=== PATIENT | male | born 1975 | race Caucasian/White ===

== ENCOUNTER 2019-07-23 09:16 | Observation (INO) | payer BC ==
[2019-07-23] MEDS ORDERED: ceFAZolin 1 GM/10 ML flush(*) SYRINGE for pocket flush (cardiology) FLUSH ONE (10:00)
[2019-07-23] MEDS ORDERED: ceFAZolin* 2 GM* ONE DOSE (Duplex) IVPB (10:00)
[2019-07-23] MEDS ORDERED: Diazepam TAB(*) 5 MG ONE (10:21)
[2019-07-23] MEDS ORDERED: fentaNYL* 50 MCG/ML 2 ML VIAL (100 MCG VIAL) ONE (10:23)
[2019-07-23] MEDS ORDERED: Flumazenil* 0.1 MG/ML 5 ML MDV ONE (10:23)
[2019-07-23] MEDS ORDERED: Midazolam* 1 MG/ML 5 ML VIAL (5 MG) ONE ×2 (10:23→11:52)
[2019-07-23] MEDS ORDERED: Naloxone* 0.4 MG/ML 1 ML VIAL ONE (10:23)
[2019-07-23] MEDS ORDERED: Lidocaine 1% INJ* 10 MG/ML 30 ML SDV ONE (10:24)
[2019-07-23] MEDS ORDERED: Acetaminophen TAB* 325 MG PO PRN (12:48)
[2019-07-23] MEDS: oxyCODONE/Acetamin 5/325 MG* TAB PO PRN ×2 (13:03→19:16)
[2019-07-23] MEDS ORDERED: Fluticasone NASAL SPRAY 50MCG* 16 gm SPRAY BTL BOTH NARES PRN (13:11)
[2019-07-23] MEDS: ceFAZolin VIAL(*) 1 GM in NS 0.9% 50 ML* 50 ML IVPB SCH (19:16)
[2019-07-23] MEDS: Carvedilol TAB* 3.125 MG PO SCH (20:39)
[2019-07-23] MEDS ORDERED: Atorvastatin* 40 MG TAB PO SCH (21:00)
[2019-07-24] MEDS: ceFAZolin VIAL(*) 1 GM in NS 0.9% 50 ML* 50 ML IVPB SCH ×2 (03:09→11:13)
[2019-07-24 08:06] VITALS: BP 145/88
[2019-07-24] MEDS: Carvedilol TAB* 3.125 MG PO SCH (08:16)
[2019-07-24] MEDS ORDERED: Aspirin EC TAB* 81 MG TAB.EC PO SCH (09:00)
--- NOTE | 2019-07-24 14:15 | OP ---
OPERATIVE REPORT: DATE OF OPERATION: 07/23/19 DATE OF : 71 SURGEON: Jose Cook MD ANESTHESIA: Local anesthesia with conscious sedation. PRE-OP DIAGNOSES: 1. Bradycardia. 2. Lightheadedness. POST-OP DIAGNOSES: 1. Bradycardia. 2. Lightheadedness. OPERATIVE PROCEDURE: Dual-chamber pacemaker implantation. ESTIMATED BLOOD LOSS: Nil. COMPLICATIONS: None. INDICATIONS: The patient is a 44-year-old gentleman who has episodes of lightheadedness and dizzines s. He has a history of bradycardia. The patient had an event monitor implanted last week. The tanika ent had an episode of lightheadedness, dizziness, and fatigue. His heart rate went down to 25 beats per minute. Permanent pacemaker was recommended. DESCRIPTION OF PROCEDURE: The patient was in a fasting state. Informed consent had been obtained pr ior to the procedure. All labs had been reviewed. The patient was placed supine on the procedure ta ble. His left deltopectoral area was cleaned and draped in the usual fashion. 1% lidocaine was used for local anesthesia. Under ultrasound guidance, the axillary vein was entered via [employer]. A second guidewire was placed in the same technique. A 5 cm incision was made in the pectoral ar ea and blunt dissection was carried down to the pectoral fascia. A pocket was fashioned for the pace maker. Over the first guidewire, a 7-Arabic sheath introducer was placed through which a right ventr icular lead was advanced to the right ventricular septum. The lead is a Medtronic model 5076, serial number [id number]. It had an R-wave sensitivity of 7.2, impedance 960 ohms, threshold 0.5 volts at 0.5 milliseconds. The ventricular lead was sutured to the pectoral fascia. Over the second guidewir e, a 7-Arabic sheath introducer was placed through which a right atrial lead was advanced to the high right atrium. The right atrial lead is a Medtronic model 5076, serial number [id number]. It had a P-wave sensitivity of 3.3, impedance 695 ohms, threshold 0.7 volts at 0.5 milliseconds. The atrial le ad was sutured to the pectoral fascia. The pocket was flushed. A generator was attached appropriate ly to the atrial and ventricular leads. The generator is a [employer] model W1DR01, serial number [id number]. The device was placed in the pocket. The surgical incision was closed in 3 layers. The pa tient tolerated the procedure well with no complications. [id number]/[facility] #: [id number]
--- NOTE | 2019-07-25 01:56 | DS ---
CC: Dr. Daniels * DISCHARGE SUMMARY: DATE OF ADMISSION: 07/23/19 TENTATIVE DATE OF DISCHARGE: Pending no complications, 07/24/19 ATTENDING PHYSICIAN: Dr. Jose Cook, Cardiology.* (DICTATED BY SAI ATKINSON NP) PRIMARY CARE PHYSICIAN: Dr. Daniels. PRIMARY PLUG AND MOLD FINISHER: Dr. Ramón Bhatia. CHIEF COMPLAINT: Symptomatic bradycardia, here for elective permanent pacemaker implantation. HISTORY OF PRESENT ILLNESS: This is a pleasant 44-year-old male patient with a notable history of bradycardia, sinus pauses, chronic kidney disease, baseline serum creatinine 1.3, hypertension, cardiomyopathy with normalization of LVEF based on February 2019 echocardiogram, who presented to [facility] on 07/23/19 for elective permanent pacemaker implantation with Dr. Jose Cook. The patient underwent successful dual-chamber pacemaker implantation with Dr. Jose Cook on 07/23/19. Postprocedure chest x-ray did not reveal any pneumothorax or acute cardiopulmonary process. He was [place]. Vital signs have remained stable. Most recent vital signs: Temperature 98.1, pulse 86, respirations 16, oxygenation 95% on room air, blood pressure 135/88. No blood work this morning to review. Chest x-ray this morning to rule out pneumothorax 24 hours after procedure is currently pending. The patient offers no complaints. Denies chest pain, shortness of breath, device site pain or discomfort. He has been utilizing left upper extremity arm immobilizer and ambulating halls with no difficulty. Pending no complications and this morning's chest x-ray, plan is to discharge the patient home in stable condition. This morning's device interrogation was reviewed. [place] lead pacing threshold is 0.5 volts at 0.4 milliseconds, right ventricle pacing threshold is 0.5 volts at 0.4 milliseconds. Normal permanent pacemaker function. No VT, no AF. For further information in regards to procedural note , please refer to Dr. Jose Cook's procedural intervention note which is currently pending at this time and has not been transcribed. DISCHARGE ACTIVITY RESTRICTIONS: No driving until further directed in followup. The patient may shower starting 07/25/19, but was advised to not soak left anterior chest device site wound, do not swim or utilize hot tub. I reviewed wound care with the patient. He was instructed to change device site wound dressing daily until he sees Eugenie Pearson NP on 07/31/19 in followup. He is aware to take temporary antibiotic as prescribed for a total of 3 days. He is aware to utilize left arm immobilizer as directed, do not lift left arm above shoulder or reach behind him for at least 6 weeks and do not lift more than 5 to 10 pounds until further directed. FOLLOWUP APPOINTMENTS: The patient is to follow up with: 1. PCP in 7 to 10 days, Dr. Daniels. 2. Eugenie Pearson NP on 07/31/19 as planned. DISCHARGE MEDICATIONS: Includes: 1. Keflex 250 mg p.o. t.i.d. 2. Aspirin 81 mg a day. 3. Atorvastatin 40 mg a day. 4. Coreg 3.125 mg p.o. b.i.d. 5. Fluticasone as directed. 6. Tylenol as directed. DISCHARGE CONDITION: Stable to be discharged home pending this morning's chest x- ray. Dr. Jose Cook has personally seen and examined the patient and agrees with the above assessment and plan. Please note that left anterior device site was personally examined by myself. It was slight tender to palpation. No evidence of pocket hematoma. Edges are well approximated with ronnie in situ, slight oozing noted from staple incision site, scant dry blood noted on dressing. No ecchymosis or inflammation appreciated. Dressing was reapplied. SAI ATKINSON NP [id number]/[facility] #: [id number] [facility]
== END 2019-07-24 11:55 | disposition home or self-care (01) ==
LOC: CHICATH 09:16 → MEDTELE 12:48
PROVIDERS: ADMIT Specialist; ATTEND Specialist
DX: R00.1 Bradycardia, unspecified (principal); I42.9 Cardiomyopathy, unspecified; R42 Dizziness and giddiness; I13.0 Hypertensive heart and chronic kidney disease with heart failure and stage 1 through stage 4 chronic kidney disease, or unspecified chronic kidney disease; E11.22 Type 2 diabetes mellitus with diabetic chronic kidney disease; I50.21 Acute systolic (congestive) heart failure; N18.9 Chronic kidney disease, unspecified; R94.31 Abnormal electrocardiogram [ECG] [EKG]; E66.01 Morbid (severe) obesity due to excess calories; Z79.82 Long term (current) use of aspirin; Z68.41 Body mass index [BMI] 40.0-44.9, adult; Z79.899 Other long term (current) drug therapy
CPT/HCPCS: 33208; 71045; 71046; 93005; 96365; 96366; 99156; 99157; A9270-GY; C1785; C1892; C1898; G0378; J0690; J2250; J2310; J3010